=== PATIENT | male | born 1990 | race Caucasian/White ===

== ENCOUNTER 2017-03-01 12:51 | Emergency (ER) | payer OTHER ==
[~2017-03-01] VITALS: Ht 185.4 cm; Wt 140.0 kg
[~2017-03-01 12:51] MED LIST: AMOXICILLIN500 MG PO; ZOFRAN ODT4 MG PO
[2017-03-01 12:55] VITALS: BP 137/84
[2017-03-01] MEDS ORDERED: MOTRIN800 MG PO (13:11)
[2017-03-01] MEDS ORDERED: AFRIN 12 HOUR0.05 % (13:11)
== END 2017-03-01 13:45 | disposition home or self-care (01) | DRG 866 ==
LOC: ED 12:51
DX: B34.9 Viral infection, unspecified (principal); F17.210 Nicotine dependence, cigarettes, uncomplicated

== ENCOUNTER 2017-04-28 10:43 | Emergency (ER) | payer OTHER ==
[~2017-04-28] VITALS: Ht 185.4 cm; Wt 142.0 kg
[~2017-04-28 10:43] MED LIST changes: +AFRIN 12 HOUR0.05 %; +MOTRIN800 MG PO
[2017-04-28] MEDS ORDERED: MOTRIN800 MG PO (11:37)
[2017-04-28 11:51] LABS: INFLUENZA A NONE DETECTED (NONE DETECT); INFLUENZA B NONE DETECTED (NONE DETECT)
[2017-04-28] MEDS ORDERED: PENICILLN VK500 MG PO (11:59)
[2017-04-28 12:04] VITALS: BP 143/86
== END 2017-04-28 12:12 | disposition home or self-care (01) | DRG 153 ==
LOC: ED 10:43
PROVIDERS: Emergency Medicine
DX: J02.9 Acute pharyngitis, unspecified (principal); F17.210 Nicotine dependence, cigarettes, uncomplicated

== ENCOUNTER 2017-05-22 12:49 | Emergency (ER) | payer OTHER ==
[~2017-05-22] VITALS: Ht 185.4 cm; Wt 147.0 kg
[~2017-05-22 12:49] MED LIST changes: +PENICILLN VK500 MG PO
[2017-05-22] MEDS ORDERED: MOTRIN800 MG PO (13:43)
[2017-05-22 14:45] VITALS: BP 120/81
== END 2017-05-22 14:45 | disposition home or self-care (01) | DRG 563 ==
LOC: ED 12:49
DX: S83.92XA Sprain of unspecified site of left knee, initial encounter (principal); F17.210 Nicotine dependence, cigarettes, uncomplicated; X50.1XXA Overexertion from prolonged static or awkward postures, initial encounter

== ENCOUNTER 2017-06-03 10:41 | Emergency (ER) | payer OTHER ==
[~2017-06-03] VITALS: Ht 185.4 cm; Wt 147.0 kg
[2017-06-03] MEDS ORDERED: TRAMADOL HYDROC50 MG PO (11:41)
[2017-06-03] MEDS ORDERED: MEDDOSEPAK PO (11:41)
[2017-06-03] MEDS ORDERED: FLEXERIL PO (11:41)
[2017-06-03 11:42] VITALS: BP 127/91
== END 2017-06-03 11:48 | disposition home or self-care (01) | DRG 552 ==
LOC: ED 10:41
DX: M54.42 Lumbago with sciatica, left side (principal)

== ENCOUNTER 2017-06-24 14:23 | Emergency (ER) | payer OTHER ==
[~2017-06-24] VITALS: Ht 185.4 cm; Wt 130.0 kg
[~2017-06-24 14:23] MED LIST changes: +FLEXERIL PO; +MEDDOSEPAK PO; +TRAMADOL HYDROC50 MG PO
[2017-06-24] MEDS ORDERED: PREDNISONE50 MG PO (14:40)
[2017-06-24] MEDS ORDERED: TRAMADOL HYDROC50 MG PO (14:40)
[2017-06-24 14:50] VITALS: BP 118/60
== END 2017-06-24 14:50 | disposition home or self-care (01) | DRG 552 ==
LOC: ED 14:23
DX: M54.32 Sciatica, left side (principal); M79.605 Pain in left leg

== ENCOUNTER 2017-07-27 07:28 | Emergency (ER) | payer OTHER ==
[~2017-07-27] VITALS: Ht 185.4 cm; Wt 135.0 kg
[~2017-07-27 07:28] MED LIST changes: +PREDNISONE50 MG PO
[2017-07-27] MEDS ORDERED: FLEXERIL5 MG PO (07:38)
[2017-07-27] MEDS ORDERED: MOTRIN800 MG PO (07:38)
[2017-07-27] MEDS ORDERED: ULTRAM50 M1 PO (10:12)
[2017-07-27] MEDS ORDERED: STERAPRED DS10 MG PO (10:12)
[2017-07-27 10:20] VITALS: BP 131/74
== END 2017-07-27 10:20 | disposition home or self-care (01) | DRG 552 ==
LOC: ED 07:28
DX: M54.32 Sciatica, left side (principal)

== ENCOUNTER 2018-01-24 15:32 | Emergency (ER) | payer OTHER ==
[~2018-01-24] VITALS: Ht 185.4 cm; Wt 135.6 kg
[~2018-01-24 15:32] MED LIST changes: +FLEXERIL5 MG PO; +GABAPENTIN400 M2 PO; +STERAPRED DS10 MG PO; +TYLENOL 500MG TAB PO; +ULTRAM50 M1 PO
[2018-01-24 17:00] LABS: INFLUENZA A NONE DETECTED (NONE DETECT); INFLUENZA B NONE DETECTED (NONE DETECT)
[2018-01-24] MEDS ORDERED: PROVENTIL HFA IN (17:05)
[2018-01-24] MEDS ORDERED: ZITHROMAX250 MG PO (17:05)
[2018-01-24 17:10] VITALS: BP 141/84
== END 2018-01-24 17:10 | disposition home or self-care (01) | DRG 203 ==
LOC: ED 15:32
PROVIDERS: Emergency Medicine
DX: J40 Bronchitis, not specified as acute or chronic (principal); J02.9 Acute pharyngitis, unspecified; F17.210 Nicotine dependence, cigarettes, uncomplicated; R05 Cough; R51 Headache; R09.89 Other specified symptoms and signs involving the circulatory and respiratory systems

== ENCOUNTER 2018-04-21 21:05 | Emergency (ER) | payer OTHER ==
[~2018-04-21] VITALS: Ht 185.4 cm; Wt 133.8 kg
[~2018-04-21 21:05] MED LIST changes: +PROVENTIL HFA IN; +ZITHROMAX250 MG PO
[2018-04-21 22:04] LABS: INFLUENZA A NONE DETECTED (NONE DETECT); INFLUENZA B NONE DETECTED (NONE DETECT)
[2018-04-21 22:50] VITALS: BP 111/74
== END 2018-04-21 23:02 | disposition home or self-care (01) | DRG 203 ==
LOC: ED 21:05
PROVIDERS: Emergency Medicine
DX: J40 Bronchitis, not specified as acute or chronic (principal); F17.210 Nicotine dependence, cigarettes, uncomplicated; J02.9 Acute pharyngitis, unspecified; R05 Cough

== ENCOUNTER 2018-08-28 13:15 | Emergency (ER) | payer OTHER ==
[~2018-08-28] VITALS: Ht 185.4 cm; Wt 130.0 kg
[2018-08-28 14:56] LABS: INFLUENZA A NONE DETECTED (NONE DETECT); INFLUENZA B NONE DETECTED (NONE DETECT)
[2018-08-28] MEDS ORDERED: AMOXICILLIN500 MG PO (15:00)
[2018-08-28 15:03] VITALS: BP 111/76
== END 2018-08-28 15:19 | disposition home or self-care (01) ==
LOC: ED 13:15
PROVIDERS: Emergency Medicine
DX: H66.92 Otitis media, unspecified, left ear (principal); J02.9 Acute pharyngitis, unspecified; R05 Cough; F17.210 Nicotine dependence, cigarettes, uncomplicated

== ENCOUNTER 2018-11-27 14:16 | Emergency (ER) | payer OTHER ==
[~2018-11-27] VITALS: Ht 185.4 cm; Wt 124.4 kg
[2018-11-27] MEDS ORDERED: ZITHROMAX250 MG PO (15:52)
[2018-11-27] MEDS ORDERED: PROVENTIL108 MCG/AC IN (15:52)
[2018-11-27] MEDS ORDERED: TESSALON PERLE100 MG PO (15:54)
[2018-11-27 15:55] VITALS: BP 116/78
== END 2018-11-27 15:55 | disposition home or self-care (01) ==
LOC: ED 14:16
DX: J06.9 Acute upper respiratory infection, unspecified (principal); R05 Cough; R09.81 Nasal congestion; F17.210 Nicotine dependence, cigarettes, uncomplicated

== ENCOUNTER 2019-01-19 17:30 | Emergency (ER) | payer OTHER ==
[~2019-01-19] VITALS: Ht 185.4 cm; Wt 120.0 kg
[~2019-01-19 17:30] MED LIST changes: +PROVENTIL108 MCG/AC IN; +TESSALON PERLE100 MG PO
[2019-01-19] MEDS ORDERED: TESSALON PERLE100 MG PO (19:08)
[2019-01-19] MEDS ORDERED: TAM75CAP PO (19:08)
[2019-01-19 19:10] VITALS: BP 144/67
== END 2019-01-19 19:10 | disposition home or self-care (01) | DRG 195 ==
LOC: ED 17:30
DX: J10.1 Influenza due to other identified influenza virus with other respiratory manifestations (principal); F17.210 Nicotine dependence, cigarettes, uncomplicated